=== PATIENT | female | born 1995 | race Caucasian/White ===

== ENCOUNTER 2019-01-12 23:17 | Inpatient (IN) | payer OTHER ==
[2019-01-13] MEDS ORDERED: SODIUM CHLORIDE 1,000 ML IV STA (00:24)
[2019-01-13] MEDS ORDERED: morphine SULFATE 4 MG/ML VIAL IVPUSH ONE (00:24)
[2019-01-13] MEDS ORDERED: ONDANSETRON 4 MG/2 ML VIAL IVPUSH ONE (00:24)
--- NOTE | 2019-01-13 00:30 | PDOC ---
History of Present Illness - General Stated Complaint: DIZZINESS Time Seen by Provider: 01/13/19 00:14 History Source: Patient Exam Limitations: Language Barrier (School Admissions #[id number]) - History of Present Illness Travel History: No Initial Comments: 01/13/19 00:26 HISTORY OF PRESENT ILLNESS: 24-year-old woman with history of gallstones presents emergency department for evaluation of right upper quadrant pain radiates to her right upper back for the past 2 days. Patient was seen and evaluated at [facility] and 01/11 was told she had gallstones at that time. Patient reports the pain is progressively gotten worse over the past 24 hours. Patient lives alone and is afraid she will in her bed without anybody knowing that she . Patient reports the pain to the right upper quadrants she rates at 10/10. She reports associated nausea but is unable to identify any aggravating or alleviating factors. No recent travel or sick contacts. PAST MEDICAL HISTORY: Gallstones SURGICAL HISTORY: Denies ALLERGIES: No known drug allergies REVIEW OF SYSTEMS General/Constitutional: Denies fever or chills. Denies weakness, weight change. HEENT: Denies change in vision. Denies ear pain or discharge. Denies sore throat. Cardiovascular: Denies chest pain or shortness of breath. Respiratory: Denies cough, wheezing, or hemoptysis. Gastrointestinal: see HPI Genitourinary: Denies dysuria, frequency, or change in urination. Musculoskeletal: Denies joint or muscle swelling or pain. Denies neck or back pain. Skin and breasts: Denies rash or easy bruising. Neurologic: Denies headache, vertigo, loss of consciousness, or loss of sensation. Psychiatric: Denies depression or anxiety. Endocrine: Denies increased thirst. Denies abnormal weight change. Hematologic/Lymphatic: Denies anemia, easy bleeding, or history of blood clots. Allergic/Immunologic: Denies hives or skin allergy. Denies latex allergy. PHYSICAL EXAM General Appearance: Well-appearing, appropriately dressed. No apparent distress , no intoxication. Respiratory/Chest: Lungs CTAB. No shortness of breath, chest tenderness, respiratory distress, accessory muscle use. No crackles, rales, rhonchi, stridor , wheezing, dullness Cardiovascular: RRR. S1, S2. No JVD, murmur, bradycardia, tachycardia. Vascular Pulses: Dorsalis-Pedis (R): 2+, Dorsalis-Pedis (L): 2+ Gastrointestinal/Abdominal: Normal bowel sounds. Abdomen soft, non-distended. RUQ tenderness with guarding. No rebound tenderness. (-)Orta's sign. No organomegaly, pulsatile mass, hernia, hepatomegaly, splenomegaly. Lymphatic: No adenopathy, tenderness. Musculoskeletal/Extremities: Normal inspection. FROM of all extremities, normal capillary refill. Pelvis Stable. No CVA tenderness. No tenderness to extremities, pedal edema, swelling, erythema or deformity. Integumentary: Appropriate color, dry, warm. No cyanosis, erythema, jaundice or rash Neurologic: floor winder II-XII intact. Fully oriented, alert. Appropriate mood/affect. Motor strength 5/5. No appreciable EOM palsy, facial droop or sensory deficit. Past History - Past Medical History Allergies/Adverse Reactions: Allergies Allergy/AdvReac Type Severity Reaction Status Date / Time No Known Allergies Allergy Verified 01/13/19 00:27 Home Medications: Ambulatory Orders NK [No Known Home Medication] 01/13/19 ED Treatment Course - LABORATORY CBC & Chemistry Diagram: 01/13/19 13:25 01/13/19 13:25 - RADIOLOGY Radiology Studies Ordered: Category Date Time Status GALLBLADDER US [US] Stat Ultrasound 01/13/19 00:25 Ordered Medical Decision Making - Medical Decision Making 01/13/19 00:28 A/P: 24-year-old woman with right upper quadrant pain for 2 days Lungs clear to auscultation bilaterally Right upper quadrant tenderness without rebound or Orta sign Guarding present Remainder of abdominal exam is benign. No CVA tenderness Differential diagnosis includes but is not limited to-gallstones, gallstone pancreatitis, cholecystitis, choledocholithiasis, hepatitis, GERD, pneumonia, ACS, anxiety about gallstone diagnosis Labs Urine Gallbladder ultrasound Morphine 4 mg IV Zofran 4 mg IV Normal saline 1 L IV bolus Reassess 01/13/19 02:46 CBC is unremarkable. Chemistries notable for T bili-2.6, AST 554, ALT 527, alkaline phosphatase 281. Lipase is 309. Urinalysis is suggestive of infection with 1+ leukoesterase and 16 wbc's. Ultrasound as read by imaging electronic train control technician the gallbladder is distended containing small stones and sludge without secondary signs of cholecystitis. CBC is not dilated and measures 6 mm in diameter but there is questionable CBD stone. I will contact hospitalist for admission for follow-up HIDA scan or MRCP and GI consult. Ceftriaxone 1 g IV for UTI 01/13/19 03:22 Case is been discussed with Dr. Vleasco who accepts patient for admission. *DC/Admit/Observation/Transfer Diagnosis at time of Disposition: Transaminitis UTI (urinary tract infection) Qualifiers: Urinary tract infection type: acute cystitis - Discharge Dispostion Condition at time of disposition: Fair Decision to Admit order: Yes - Referrals - Patient Instructions - Post Discharge Activity
[2019-01-13 00:51] LABS: BASO % 0.5 % (0-2.0); EOS % 1.2 % (0-4.5); LYMPH % 26.2 % (8-40); MCHC 31.6 g/dl (32.0-36.0); MEAN CELL VOLUME 79.1 fl (80-96); MEAN PLT VOLUME 7.7 fl (7.5-11.1); NEUT % 63.1 % (42.8-82.8); PLATELET COUNT 301 K/MM3 (134-434); RBC 4.81 M/mm3 (3.60-5.2); RDW 17.2 % (11.6-15.6); WHITE BLOOD COUNT 6.5 K/mm3 (4.0-10.0)
[2019-01-13 01:20] LABS: ALBUMIN 3.9 g/dl (3.4-5.0); ALK PHOS 281 U/L (45-117); ANION GAP 7 MMOL/L (8-16); BILIRUBIN,TOTAL 2.6 mg/dL (0.2-1); BLOOD UREA NITROGEN 9 mg/dL (7-18); CALCIUM 8.6 mg/dL (8.5-10.1); CHLORIDE 109 mmol/L (98-107); CO2 25 mmol/L (21-32); CREATININE 0.6 mg/dL (0.55-1.3); GLUCOSE,RANDOM 90 mg/dL (74-106); LIPASE 309 U/L (73-393); POTASSIUM 3.8 mmol/L (3.5-5.1); SGOT/AST 554 U/L (15-37); SGPT/ALT 527 U/L (13-61); SODIUM 141 mmol/L (136-145); TOT PROT 7.5 g/dl (6.4-8.2)
[2019-01-13] MEDS ORDERED: ONDANSETRON 4 MG/2 ML VIAL ONE (01:24)
[2019-01-13] MEDS ORDERED: morphine SULFATE 4 MG/ML VIAL ONE (01:24)
--- NOTE | 2019-01-13 01:26 | PDOC ---
*Physical Exam - Vital Signs Last Vital Signs Temp Pulse Resp BP Pulse Ox 98.0 F 79 18 108/67 98 01/13/19 00:17 01/13/19 00:17 01/13/19 00:17 01/13/19 00:17 01/13/19 00:17 ED Treatment Course - LABORATORY CBC & Chemistry Diagram: 01/13/19 13:25 01/13/19 13:25 - ADDITIONAL ORDERS Additional order review: Laboratory Results 01/13/19 00:45 Sodium 141 Potassium 3.8 Chloride 109 H Carbon Dioxide 25 Anion Gap 7 L BUN 9 Creatinine 0.6 Est GFR (CKD-EPI)AfAm 146.83 Est GFR (CKD-EPI)NonAf 126.68 Random Glucose 90 Calcium 8.6 Total Bilirubin 2.6 H AST 554 H ALT 527 H Alkaline Phosphatase 281 H Creatine Kinase 59 Troponin I < 0.02 Total Protein 7.5 Albumin 3.9 Lipase 309 01/13/19 00:45 RBC 4.81 MCV 79.1 L MCHC 31.6 L RDW 17.2 H MPV 7.7 Neutrophils % 63.1 Lymphocytes % 26.2 Monocytes % 9.0 Eosinophils % 1.2 Basophils % 0.5 - Medications Given in the ED: ED Medications Discontinued Medications Generic Name Dose Route Start Last Admin Trade Name Freq PRN Reason Stop Dose Admin Sodium Chloride 1,000 mls @ 1,000 mls/hr 01/13/19 00:24 01/13/19 01:15 Normal Saline - IV 01/13/19 01:23 1,000 mls/hr ASDIR STA Administration Morphine Sulfate 4 mg 01/13/19 00:24 01/13/19 01:15 Morphine Sulfate IVPUSH 01/13/19 00:25 4 mg ONCE ONE Administration Ondansetron HCl 4 mg 01/13/19 00:24 01/13/19 01:15 Zofran Injection IVPUSH 01/13/19 00:25 4 mg ONCE ONE Administration Medical Decision Making - Medical Decision Making 01/13/19 01:24 Ms Gaming is a 24 yo F who presents with a complaint of RUQ pain She is s/p evaluation at [facility] yesterday where she was told that she has gallstones Pt has worsening RUQ pain (+) nausea No aggravating or alleviating factors Will do: Labs US Re Assess need for surgical consultation Pt seen by Midlevel Provider under my direct supervision Ancillary studies reviewed I agree with plan as outlined by Midlevel Provider *DC/Admit/Observation/Transfer Diagnosis at time of Disposition: Transaminitis, UTI (urinary tract infection) - Discharge Dispostion Condition at time of disposition: Fair - Referrals - Patient Instructions - Post Discharge Activity
[2019-01-13 02:00] LABS: EPI CELLS 25.3 /HPF (0-5/HPF); HYALINE CASTS 4 /lpf (0-8); URINE APPEARANCE CLOUDY; URINE BACTERIA 1248.8 /hpf (NEGATIVE); URINE BILIRUBIN 2+ (NEGATIVE); URINE COLOR DK YELLOW; URINE GLUCOSE (UA) NEGATIVE (NEGATIVE); URINE KETONE NEGATIVE (NEGATIVE); URINE LEUK ESTERASE 1+ (NEGATIVE); URINE NITRITE NEGATIVE (NEGATIVE); URINE PROTEIN NEGATIVE (NEGATIVE); URINE RBC 5 /hpf (0-4); URINE WBC 16 /hpf (0-5)
[2019-01-13] MEDS ORDERED: CEFTRIAXONE 1,000 MG in DEXTROSE 5%-WATER - 50 ML IVPB ONE (02:44)
--- NOTE | 2019-01-13 02:54 | PN ---
Teaching Attending Note Name of Resident: Michael Ferreira ATTENDING PHYSICIAN STATEMENT I saw and evaluated the patient. I reviewed the resident's note and discussed the case with the resident. I agree with the resident's findings and plan as documented. SUBJECTIVE: Patient is a 24 year old woman with PMH of gallstones and 2 months ago who presents to the ER with right upper quadrant pain for 2 days. Pain radiates to her right upper back and she was evaluated at [facility] on 01/11/2019 and was told she had gallstones at that time. She was asked to follow up with GI. Has had bouts of vomiting with blood steaks. Patient reports the pain is progressively gotten worse over the past 24 hours. Patient lives alone and is afraid she will in her bed without anybody knowing that she . Patient reports the pain to the right upper quadrants she rates at 10/10. She reports associated nausea but is unable to identify any aggravating or alleviating factors. Says she drank a lot on her birthday on January 04, 2020. Denies fever, but has chills and dysuria, but no diarrhea, chestpain, SOB, dizziness or headache. Patient has tongue metal rings and rings in other body parts and may not be able to get an MRI. OBJECTIVE: Alert Vital Signs Period Temp Pulse Resp BP Sys/Cormier Pulse Ox Last 24 Hr 98.0 F 79 18 108/67 98 HEENT: No Jaundice, eye redness or discharge, PERRLA, EOMI. Normocephalic, atraumatic. External ears are normal and hearing is grossly intact. No nasal discharge. Neck: Supple, nontender. No palpable adenopathy or thyromegaly. No JVD Chest: Good effort. Clear to auscultation and percussion. Heart: Regular. No S3, rub or murmur Abdomen: Not distended, soft, RUQ tenderness and no HSM. No rebound or guarding. Normal bowel sounds. Ext: Peripheral pulses intact. No leg edema. Skin: Warm and dry. No petechiae, rash or ecchymosis. Neuro: Alert. Oriented x3. CN 2-12 grossly intact. Sensation grossly intact in all four extremities and DTR are symmetric. Psych: Appropriate mood and affect. Good insight. Abnormal Lab Results 01/13/19 01/13/19 01/13/19 00:45 00:45 01:34 MCV 79.1 L MCH 25.0 L MCHC 31.6 L RDW 17.2 H Chloride 109 H Anion Gap 7 L Total Bilirubin 2.6 H AST 554 H ALT 527 H Alkaline Phosphatase 281 H Urine Bilirubin 2+ H Ur Leukocyte Esterase 1+ H ASSESSMENT AND PLAN: 1. Cholelithiasis/Rule out Cholecystitis - Ultrasound shows gallstones and possible CBD stone. Will get blood cultures, HIDA scan to evaluate for cholecystitis and treat her with IV Rocephin for now. Also has features of UTI. Get hepatitis serology, fasting lipids, trend LFTs, keep her NPO and give IV LR , Protonix IV and IV morphine for severe pain. Consult GI and Surgery. 2. DVT prophylaxis - SCDs; Give Lovenox post procedure. 3. Advance directives - Full code
[2019-01-13] MEDS ORDERED: CEFTRIAXONE 1 GM/50 ML BAG ONE (03:52)
[2019-01-13] MEDS ORDERED: MORPHINE SULFATE 2 MG/ML VIAL IVPUSH PRN (04:41)
--- NOTE | 2019-01-13 05:04 | HP ---
CHIEF COMPLAINT: Nausea, Vomiting and Abdominal pain PCP: HISTORY OF PRESENT ILLNESS: Pt. is a 24 y.o. F w/o PMHx. presenting for nausea vomiting and abdominal pain for the last day. Pt. states that the pain is located in the RUQ, and epigastrium primarily but endorses LUQ and suprapubic tenderness. Pt. states that she normally drinks occasionally (2-3 drinks) at one time, however on her birthday she drank an unquantifiable amount. Pt. states that since yesterday she has vomited 10x including 2x in the ED, all with blood in her vomitus. Pt. states she feels dizzy and lightheaded currently. Pt. endorses polyuria and dysuria associated with chills. Pt. denies fever or hematuria at this time however is concerned that her urine has become darker n color over the last day. Pt. admits to not eating vegetables and eating lots of fatty foods. Pt. notes that she recently had a 2 months go without complications of a 40week gestational child. Pt. was seen and worked up at [facility] and found to have gall stones. ER course was notable for: (1)1L NS, Abd. US, Morphine 4 mg (2)UA, UCx.; Ceftriaxone, Ondansetron (3) Recent Travel: No PAST MEDICAL HISTORY: As above PAST SURGICAL HISTORY: (11/2018) Social History: Smoking: Denies Alcohol: Endorses 2-3 drinks occasionally Drugs: Denies Family History: Deneis Allergies No Known Allergies Allergy (Verified 01/13/19 00:27) HOME MEDICATIONS: REVIEW OF SYSTEMS As above PHYSICAL EXAMINATION Vital Signs - 24 hr 01/13/19 00:17 Temperature 98.0 F Pulse Rate 79 Respiratory 18 Rate Blood Pressure 108/67 O2 Sat by Pulse 98 Oximetry (%) GENERAL: Awake, alert, and fully oriented, in no acute distress. HEAD: Normal with no signs of trauma. EYES: Extraocular movements intact, sclera anicteric, conjunctiva clear. EARS, NOSE, THROAT: Ears normal, nares patent, oropharynx clear without exudates. Moist mucous membranes. NECK: Normal range of motion, supple without lymphadenopathy, JVD, or masses. LUNGS: Breath sounds equal, clear to auscultation bilaterally. No wheezes, and no crackles. No accessory muscle use. HEART: Regular rate and rhythm, normal S1 and S2 without murmur ABDOMEN: Soft, RUQ, Epigastric and LUQ tenderness, not distended, normoactive bowel sounds, no guarding, no rebound, no masses. No hepatomegaly or splenomegaly. MUSCULOSKELETAL: Normal range of motion at all joints. No bony deformities or tenderness. No CVA tenderness. UPPER EXTREMITIES: 2+ radial pulses, warm, well-perfused. No cyanosis. No clubbing. No peripheral edema. LOWER EXTREMITIES: 2+ dorsal pedal pulses, warm, well-perfused. No calf tenderness. No peripheral edema. NEUROLOGICAL: Normal speech. Normal gait. PSYCHIATRIC: Cooperative. Good eye contact. Appropriate mood and affect. SKIN: Warm, dry, normal turgor, no rashes or lesions noted, normal capillary refill. Laboratory Results - last 24 hr 01/13/19 01/13/19 01/13/19 00:45 00:45 00:45 WBC 6.5 RBC 4.81 Hgb 12.0 Hct 38.0 MCV 79.1 L MCH 25.0 L MCHC 31.6 L RDW 17.2 H Plt Count 301 MPV 7.7 Absolute Neuts (auto) 4.1 Neutrophils % 63.1 Lymphocytes % 26.2 Monocytes % 9.0 Eosinophils % 1.2 Basophils % 0.5 Nucleated RBC % 0 Sodium 141 Potassium 3.8 Chloride 109 H Carbon Dioxide 25 Anion Gap 7 L BUN 9 Creatinine 0.6 Est GFR (CKD-EPI)AfAm 146.83 Est GFR (CKD-EPI)NonAf 126.68 Random Glucose 90 Calcium 8.6 Total Bilirubin 2.6 H AST 554 H ALT 527 H Alkaline Phosphatase 281 H Creatine Kinase 59 Troponin I < 0.02 Total Protein 7.5 Albumin 3.9 Lipase 309 Urine Color Urine Appearance Urine pH Ur Specific [place] Urine Protein Urine Glucose (UA) Urine Ketones Urine Blood Urine Nitrite Urine Bilirubin Urine Urobilinogen Ur Leukocyte Esterase Urine WBC (Auto) Urine RBC (Auto) Urine Casts (Auto) U Epithel Cells (Auto) Urine Bacteria (Auto) Urine HCG, Qual Blood Type A POSITIVE Antibody Screen Negative 01/13/19 01/13/19 01:34 01:34 WBC RBC Hgb Hct MCV MCH MCHC RDW Plt Count MPV Absolute Neuts (auto) Neutrophils % Lymphocytes % Monocytes % Eosinophils % Basophils % Nucleated RBC % Sodium Potassium Chloride Carbon Dioxide Anion Gap BUN Creatinine Est GFR (CKD-EPI)AfAm Est GFR (CKD-EPI)NonAf Random Glucose Calcium Total Bilirubin AST ALT Alkaline Phosphatase Creatine Kinase Troponin I Total Protein Albumin Lipase Urine Color Dk yellow Urine Appearance Cloudy Urine pH 8.0 Ur Specific [place] 1.020 Urine Protein Negative Urine Glucose (UA) Negative Urine Ketones Negative Urine Blood Negative Urine Nitrite Negative Urine Bilirubin 2+ H Urine Urobilinogen 1.0 Ur Leukocyte Esterase 1+ H Urine WBC (Auto) 16 Urine RBC (Auto) 5 Urine Casts (Auto) 4 U Epithel Cells (Auto) 25.3 Urine Bacteria (Auto) 1248.8 Urine HCG, Qual Negative Blood Type Antibody Screen ASSESSMENT/PLAN: Pt. is a 24 y.o. F w/o PMHx. presenting for nausea vomiting and abdominal pain for the last day. Pt. states that the pain is located in the RUQ, and epigastrium primarily but endorses LUQ and suprapubic tenderness. #Biliary Colic 2/2 Cholestasis 2/2 and poor diet TBIli: 2.6; AST: 54; ALT: 527; ALP: 281 Abd US: Preliminary read shows multiple small gallstones in the gall bladder with sludge, questionable CBD stone however no CBD dilatation noted. GI Consult (Dr. Nevarez) appreciated f/u HIDA scan to evaluate obstruction the duct; may need MRCP for further evaluation however in the setting of a small CBD stone HIDA scan may be better to evaluate obstruction especially if near the ampulla. c/w Ceftriaxone f/u Lipid panel Lipase wnl Morphine 1mg Q6H for pain control #Upper GI Bleed multiple episodes of hemetemesis, though unwitnessed and unconfirmed by medical staff Hgb: stable at 12.0 Protonix 40mg IVP BID NPO IVF GI Consult appreciated #UTI c/w Ceftriaxone with empiric treatment for suspected UTI f/u UCx. f/u BCx. #FEN LR @ 200ml/hr for 2 bags monitor electrolytes an replete as needed NPO #DVT Ppx. SCDs TEDs Hold AC in setting of ongoing bleed Visit type - Emergency Visit Emergency Visit: Yes ED Registration Date: 01/13/19 Care time: The patient presented to the Emergency Department on the above date and was hospitalized for further evaluation of their emergent condition. - New Patient This patient is new to me today: Yes Date on this admission: 01/13/19 - Critical Care Critical Care patient: No
[2019-01-13] MEDS: LACTATED RINGERS SOLUTION 1,000 ML IV SCH ×2 (06:20→12:26)
[2019-01-13 08:03] VITALS: BMI 26.6
--- NOTE | 2019-01-13 10:08 | EKG ---
Test Reason : Blood Pressure : / mmHG Vent. Rate : 060 BPM Atrial Rate : 060 BPM P-R Int : 138 ms QRS Dur : 082 ms QT Int : 412 ms P-R-T Axes : 024 051 033 degrees QTc Int : 412 ms NORMAL SINUS RHYTHM NORMAL ECG NO PREVIOUS ECGS AVAILABLE Confirmed by JESSIKA WYNNE, JALIL ([id number]) on 01/13/2019 10:08:25 AM Referred By: Confirmed By:JALIL ROSEN MD
[2019-01-13] MEDS ORDERED: KETOROLAC TROMETHAMINE 30 MG/1 ML VIAL IVPUSH ONE (10:10)
[2019-01-13] MEDS: PANTOPRAZOLE SODIUM 40 MG VIAL IVPUSH SCH ×2 (10:18→21:39)
[2019-01-13 10:19] LABS: CHOLESTEROL 139 mg/dL (50-200); HDL CHOLESTEROL 56 mg/dL (40-60); MAGNESIUM 2.6 mg/dL (1.8-2.4); PHOSPHOROUS 2.6 mg/dL (2.5-4.9); TRIGLYCERIDES 80 mg/dL (0-150)
--- NOTE | 2019-01-13 10:49 | CON.GI ---
Consult Consult Specialty:: Gastroenterology - History of Present Illness Chief Complaint: Abdominal pain History of Present Illness: 24yo female h/o appendectomy presents with worsening RUQ pain over the past 2 days. Pt fijian speaking, phone motor vehicle parts interpreter used. Pt reports recurrent episodes of epigastric pain with radiation to RUQ/flank since November. States she has been seen in ED and treated conservatively with pain resolving within 5-6 hours, though not previously told she had gallstones. Pt now states pain started suddenly on Friday when at work, severe sharp pain in epigastrium radiating to RUQ, with associated nausea and vomiting. Describes streaks of bright blood yesterday after repeated emesis. Denies fever/chills. Denies clear association with meals or fatty foods. Reports dark urine, denies change in bowel pattern. Recently had uncomplicated C section (10/2018). Denies smoking, etoh, IVDA. ETOH consumption last week per records on pts birthday. No known family h/o gallbladder or liver disease, and no known GI malignancy. - History Source History Provided By: Patient Limitations to Obtaining History: No Limitations - Past Medical History ...LMP: 12/25/18 ...: No - Alcohol/Substance Use Hx Alcohol Use: Yes (occational) - Smoking History Smoking history: Never smoked Have you smoked in the past 12 months: No Home Medications - Allergies Allergies/Adverse Reactions: Allergies Allergy/AdvReac Type Severity Reaction Status Date / Time No Known Allergies Allergy Verified 01/13/19 00:27 - Home Medications Home Medications: Ambulatory Orders NK [No Known Home Medication] 01/13/19 Review of Systems - Review of Systems Constitutional: reports: No Symptoms Cardiovascular: reports: No Symptoms Respiratory: reports: No Symptoms Gastrointestinal: reports: Abdominal Pain Musculoskeletal: reports: No Symptoms Physical Exam-GI Vital Signs: Vital Signs Temperature 98.3 F 01/13/19 07:49 Pulse Rate 62 01/13/19 07:49 Respiratory Rate 18 01/13/19 07:49 Blood Pressure 120/76 01/13/19 07:49 O2 Sat by Pulse Oximetry (%) 98 01/13/19 08:13 Constitutional: Yes: Well Nourished, No Distress, Calm Cardiovascular: Yes: WNL, Regular Rate and Rhythm Respiratory: Yes: WNL, Regular, CTA Bilaterally Gastrointestinal Inspection: Yes: WNL ...Palpate: Yes: Other (Abd soft, tender in epigastrium and RUQ on palpation with slight guarding, non distended, no rebound, or rigidity) Labs: CBC, BMP 01/13/19 00:45 01/13/19 00:45 Imaging - Results Ultrasound: Report Reviewed, Image Reviewed Problem List - Problems (1) Abdominal pain Assessment/Plan: 24yo female h/o appendectomy, recent uncomplicated C section presents with worsening RUQ colicky pain with US revealing gallstones and possible CBD dilation with stone, and elevated LFTs. MRCP pending. Lipase normal. Concerning for choledocholithiasis vs passed stone though currently no clinical features to suggest cholangitis. -Keep NPO, continue IVF -Await MRCP to further evaluate biliary tree and assess for CBD stones -Repeat LFTs today (ordered) and monitor trend -Continue IV antibiotics (zosyn ordered) -PPI daily -Pending above, pt may require ERCP (Dr. Ward aware) -Surgery consult for cholecystectomy once clinically improved -If increased abdominal pain, rising LFTs, fever or hemodynamic stability that may suggest impending cholangitis please call GI for possible more urgent intervention. Code(s): R10.9 - UNSPECIFIED ABDOMINAL PAIN
[2019-01-13] MEDS ORDERED: PIPERACILLIN/TAZOB 3.375 GM 3.375 GM in DEXTROSE 5%-WATER - 50 ML IVPB SCH (11:30)
--- NOTE | 2019-01-13 11:40 | PN ---
Physical Exam: SUBJECTIVE: Patient seen and examined at bedside. Pt states she has persistent RUQ abdominal pain radiating to the back. Reports no urinary or bowel symptoms. OBJECTIVE: Vital Signs Temperature 98.3 F 01/13/19 07:49 Pulse Rate 62 01/13/19 07:49 Respiratory Rate 18 01/13/19 07:49 Blood Pressure 120/76 01/13/19 07:49 O2 Sat by Pulse Oximetry (%) 98 01/13/19 09:00 GENERAL: Kiswahili-speaking. Resting comfortably in bed. Alert and oriented. HEENT: AT/NC. Moist mucus membranes. NECK: Trachea midline, full range of motion, supple. LUNGS: CTA B/L. No wheezes, rhonchi, rales noted. Symmetric chest rise. HEART: RRR. Normal S1, S2. No murmurs noted. ABDOMEN: +TTP RUQ, +Orta sign. Well-healed horizontal scar in RLQ ( appendectomy) and suprapubic region (). No ecchymosis, redness, masses noted. EXTREMITIES: 2+ pulses, warm, well-perfused, no edema. NEUROLOGICAL: Responds to commands. CBC, BMP 01/13/19 00:45 01/13/19 00:45 Active Medications Lactated Ringer's (Lactated Ringers Solution) 1,000 mls @ 200 mls/hr IV ASDIR [facility] Stop: 01/14/19 09:44 Last Admin: 01/13/19 06:20 Dose: 200 mls/hr Piperacillin Sod/Tazobactam (Sod 3.375 gm/ Dextrose) 50 mls @ 100 mls/hr IVPB Q8H-IV SUSANA; Protocol Piperacillin Sod/Tazobactam (Sod 3.375 gm/ Dextrose) 100 mls @ 200 mls/hr IVPB Q8H [facility] Stop: 01/14/19 04:14 Morphine Sulfate (Morphine Sulfate) 1 mg IVPUSH Q6H PRN PRN Reason: PAIN LEVEL 7 - 10 Pantoprazole Sodium (Protonix Iv) 40 mg IVPUSH BID [facility] Last Admin: 01/13/19 10:18 Dose: 40 mg IMAGING: * Abd U/S: Slightly distended GB w/ biliary sludge and cholelithiasis. Slightly prominent CBD w/ suspected choledocholithiasis. MRCP follow up rec. * HIDA scan: Lack of biliary excretion, filling of the GB or biliary enteric transit of tracer after 4 hours of imaging suggestive of high-grade CBD obstruction. ASSESSMENT/PLAN: 24 Kiswahili-speaking female w/o pmhx presenting with nausea/vomiting and abdominal pain x2 days found to have choledocholithiasis vs. passing gallstone. #Choledocholithiasis vs. passing stone -HIDA scan noted above; high-grade CBD obstruction -GI made aware of HIDA results. Discussed with GI that since T Bili is starting to decrease, it is possible that pt may be passing stone. Likely ERCP tomorrow. Cont to monitor for increasing abd pain, increasing LFTs, fever, or HD instability concerning for cholangitis. -Surg consult for cholecystectomy once clinically improved -Switch from Ceftriaxone to Zosyn 3.375 Q8H IVPB (Day 2 of abx) -TBili improving 2.6 ---> 2.4, AST/ALT improving, lipase wnl -Morphine 1mg Q6H for pain control #Hematemesis; Stable, no bleeding episodes. -Hgb stable, 12 ---> 10.9; cont to monitor CBC -Protonix 40mg IVP BID -NPO, IVf #suspected UTI -previously given empiric Ceftriaxone, now switched to Zosyn -f/u UCx, BCx #FEN -LR @ 200ml/hr for 2 bags -monitor electrolytes an replete as needed -NPO #DVT Ppx -SCDs -TEDs -Hold AC Dispo -full code -cont to monitor on med-surg Visit type - Emergency Visit Emergency Visit: Yes ED Registration Date: 01/13/19 Care time: The patient presented to the Emergency Department on the above date and was hospitalized for further evaluation of their emergent condition. - New Patient This patient is new to me today: Yes Date on this admission: 01/13/19 - Critical Care Critical Care patient: No
[2019-01-13] MEDS ORDERED: PIPERACILLIN/TAZOBACTAM 3.375 GM VIAL IVPB ONE ×2 (12:35→19:43)
[2019-01-13] MEDS ORDERED: DEXTROSE 5%-WATER 100 ML IVPB ONE ×2 (12:35→19:43)
[2019-01-13] MEDS: PIPERACILLIN/TAZOB 3.375 GM 3.375 GM in DEXTROSE 5%-WATER 100 ML IVPB SCH ×2 (12:43→20:20)
[2019-01-13 13:50] LABS: HEMATOCRIT 34.4 % (32.4-45.2); HEMOGLOBIN 10.9 GM/dL (10.7-15.3); MCHC 31.6 g/dl (32.0-36.0); MEAN PLT VOLUME 7.9 fl (7.5-11.1); PLATELET COUNT 270 K/MM3 (134-434); RBC 4.35 M/mm3 (3.60-5.2); RDW 16.9 % (11.6-15.6); WHITE BLOOD COUNT 7.6 K/mm3 (4.0-10.0)
[2019-01-13 14:04] LABS: INR 0.97 (0.83-1.09); PROTHROMBIN TIME (PATIENT) 11.5 SEC (9.7-13.0)
[2019-01-13 14:19] LABS: ALBUMIN 3.4 g/dl (3.4-5.0); BILIRUBIN,TOTAL 2.4 mg/dL (0.2-1); CALCIUM 8.6 mg/dL (8.5-10.1); CREATININE 0.5 mg/dL (0.55-1.3); POTASSIUM 3.4 mmol/L (3.5-5.1); TOT PROT 6.5 g/dl (6.4-8.2)
--- NOTE | 2019-01-13 18:23 | PN ---
Teaching Attending Note Name of Resident: Niyah Antony ATTENDING PHYSICIAN STATEMENT I saw and evaluated the patient. I reviewed the resident's note and discussed the case with the resident. I agree with the resident's findings and plan as documented. SUBJECTIVE: Ongoing epigastric pain, bloody vomiting resolved. No fever/chills. No diarrhea/melena/hematochezia. No chest pain/palpitations/lightheadedness OBJECTIVE: Afebrile, Hemodynamically Stable Last Vital Signs Temp Pulse Resp BP Pulse Ox 98.5 F 90 18 113/60 98 01/13/19 15:42 01/13/19 15:42 01/13/19 15:42 01/13/19 15:42 01/13/19 09:00 HEENT - Atraumatic, Normocephalic Heart - S1, S2, RRR Lungs - clear to auscultation Abdomen - Epigastric/RUQ tenderness, soft, bowel Sounds normal. Extremities - no edema, no calf tenderness. Laboratory Results - last 24 hr 01/13/19 01/13/19 01/13/19 00:45 00:45 00:45 WBC 6.5 RBC 4.81 Hgb 12.0 Hct 38.0 MCV 79.1 L MCH 25.0 L MCHC 31.6 L RDW 17.2 H Plt Count 301 MPV 7.7 Absolute Neuts (auto) 4.1 Neutrophils % 63.1 Lymphocytes % 26.2 Monocytes % 9.0 Eosinophils % 1.2 Basophils % 0.5 Nucleated RBC % 0 PT with INR INR Sodium 141 Potassium 3.8 Chloride 109 H Carbon Dioxide 25 Anion Gap 7 L BUN 9 Creatinine 0.6 Est GFR (CKD-EPI)AfAm 146.83 Est GFR (CKD-EPI)NonAf 126.68 Random Glucose 90 Calcium 8.6 Phosphorus 2.6 Magnesium 2.6 H Total Bilirubin 2.6 H AST 554 H ALT 527 H Alkaline Phosphatase 281 H Creatine Kinase 59 Troponin I < 0.02 Total Protein 7.5 Albumin 3.9 Triglycerides 80 Cholesterol 139 Total LDL Cholesterol 73 HDL Cholesterol 56 Lipase 309 Urine Color Urine Appearance Urine pH Ur Specific [place] Urine Protein Urine Glucose (UA) Urine Ketones Urine Blood Urine Nitrite Urine Bilirubin Urine Urobilinogen Ur Leukocyte Esterase Urine WBC (Auto) Urine RBC (Auto) Urine Casts (Auto) U Epithel Cells (Auto) Urine Bacteria (Auto) Urine HCG, Qual Blood Type A POSITIVE Antibody Screen Negative 01/13/19 01/13/19 01/13/19 01:34 01:34 05:26 WBC RBC Hgb Hct MCV MCH MCHC RDW Plt Count MPV Absolute Neuts (auto) Neutrophils % Lymphocytes % Monocytes % Eosinophils % Basophils % Nucleated RBC % PT with INR INR Sodium Potassium Chloride Carbon Dioxide Anion Gap BUN Creatinine Est GFR (CKD-EPI)AfAm Est GFR (CKD-EPI)NonAf Random Glucose Calcium Phosphorus Magnesium Total Bilirubin AST ALT Alkaline Phosphatase Creatine Kinase Troponin I Total Protein Albumin Triglycerides Cholesterol Total LDL Cholesterol HDL Cholesterol Lipase Urine Color Dk yellow Urine Appearance Cloudy Urine pH 8.0 Ur Specific [place] 1.020 Urine Protein Negative Urine Glucose (UA) Negative Urine Ketones Negative Urine Blood Negative Urine Nitrite Negative Urine Bilirubin 2+ H Urine Urobilinogen 1.0 Ur Leukocyte Esterase 1+ H Urine WBC (Auto) 16 Urine RBC (Auto) 5 Urine Casts (Auto) 4 U Epithel Cells (Auto) 25.3 Urine Bacteria (Auto) 1248.8 Urine HCG, Qual Negative Blood Type A POSITIVE Antibody Screen 01/13/19 01/13/19 01/13/19 13:25 13:25 13:25 WBC 7.6 RBC 4.35 Hgb 10.9 Hct 34.4 MCV 79.0 L MCH 25.0 L MCHC 31.6 L RDW 16.9 H Plt Count 270 MPV 7.9 Absolute Neuts (auto) Neutrophils % Lymphocytes % Monocytes % Eosinophils % Basophils % Nucleated RBC % PT with INR 11.50 INR 0.97 Sodium 139 Potassium 3.4 L Chloride 108 H Carbon Dioxide 23 Anion Gap 7 L BUN 7 Creatinine 0.5 L Est GFR (CKD-EPI)AfAm 155.90 Est GFR (CKD-EPI)NonAf 134.52 Random Glucose 86 Calcium 8.6 Phosphorus Magnesium Total Bilirubin 2.4 H AST 272 H ALT 394 H Alkaline Phosphatase 257 H Creatine Kinase Troponin I Total Protein 6.5 Albumin 3.4 Triglycerides Cholesterol Total LDL Cholesterol HDL Cholesterol Lipase Urine Color Urine Appearance Urine pH Ur Specific [place] Urine Protein Urine Glucose (UA) Urine Ketones Urine Blood Urine Nitrite Urine Bilirubin Urine Urobilinogen Ur Leukocyte Esterase Urine WBC (Auto) Urine RBC (Auto) Urine Casts (Auto) U Epithel Cells (Auto) Urine Bacteria (Auto) Urine HCG, Qual Blood Type Antibody Screen Current Medications Generic Name Dose Route Start Last Admin Trade Name Freq PRN Reason Stop Dose Admin Lactated Ringer's 1,000 mls @ 200 mls/hr 01/13/19 04:45 01/13/19 12:26 Lactated Ringers Solution IV 01/14/19 09:44 200 mls/hr ASDIR SUSANA Administration Piperacillin Sod/Tazobactam 50 mls @ 100 mls/hr 01/13/19 11:30 Sod 3.375 gm/ Dextrose IVPB Q8H-IV SUSANA Protocol Piperacillin Sod/Tazobactam 100 mls @ 200 mls/hr 01/13/19 11:45 01/13/19 12: 43 Sod 3.375 gm/ Dextrose IVPB 01/14/19 04:14 200 mls/hr Q8H SUSANA Administration Lactated Ringer's 1,000 ml in 1,000 mls @ 100 mls/hr 01/13/19 16:30 Lactated Ringers Solution IV ASDIR SUSANA Morphine Sulfate 1 mg 01/13/19 04:41 Morphine Sulfate IVPUSH Q6H PRN PAIN LEVEL 7 - 10 Pantoprazole Sodium 40 mg 01/13/19 10:00 01/13/19 10:18 Protonix Iv IVPUSH 40 mg BID SUSANA Administration ASSESSMENT AND PLAN: 24 year old female with history of recent , presents with epigastric pain with associated nausea and bloody vomitus (bright red as per patient) - no further episodes. 1. Biliary Obstruction secondary to Choledocholithiasis Afebrile, Hemodynamically Stable - no evidence of ascending cholangitis On IV Zosyn empirically TBIli: 2.6, AST: 554, ALT 527 on presentation - now down to TBil 2.4, AST 272, ALT 394 Abd US shows multiple small gallstones in a distended gall bladder with sludge, questionable CBD stone, prominent CBD HIDA shows findings suggestive of high grade CBD obstruction GI consulted and evaluated - for likely ERCP tomorrow. As per GI - if increased abdominal pain, rising LFTs, fever or hemodynamic stability that may suggest impending cholangitis please call GI for possible more urgent intervention. Analgesia with IV Morphine 2. Hematemesis ? sec to MV tear GI evaluated ?EGD/ERCP Continue Protonix H/H Stable NPO/IV Fluids Further management as per GI 3. Possible UTI UA + Ceftriaxone switched to IV Zosyn Urine Cx pending. DVT Px - SCDs. Heparin held sec to reported Hematemesis.
[2019-01-13] MEDS: LACTATED RINGERS SOLUTION 1,000 ML/1,000 ML INFUS.BAG IV SCH ×2 (20:18)
[2019-01-14] MEDS ORDERED: DEXTROSE 5%-WATER 100 ML IVPB ONE (02:47)
[2019-01-14] MEDS ORDERED: PIPERACILLIN/TAZOBACTAM 3.375 GM VIAL IVPB ONE (02:47)
[2019-01-14] MEDS: PIPERACILLIN/TAZOB 3.375 GM 3.375 GM in DEXTROSE 5%-WATER 100 ML IVPB SCH (04:23)
--- NOTE | 2019-01-14 06:45 | PN ---
Physical Exam: SUBJECTIVE: Patient seen and examined at bedside. No acute events overnight. States abdominal pain is now 3/10. Slept well last night. Denies chest pain, sob , n/v. OBJECTIVE: Vital Signs Temperature 98.0 F 01/13/19 23:00 Pulse Rate 76 01/13/19 23:00 Respiratory Rate 18 01/13/19 23:00 Blood Pressure 115/65 01/13/19 23:00 O2 Sat by Pulse Oximetry (%) 98 01/13/19 22:00 GENERAL: Occitan-speaking. Resting comfortably in bed. Alert and oriented. HEENT: AT/NC. Moist mucus membranes. NECK: Trachea midline, full range of motion, supple. LUNGS: CTA B/L. No wheezes, rhonchi, rales noted. Symmetric chest rise. HEART: RRR. Normal S1, S2. No murmurs noted. ABDOMEN: +TTP RUQ, +Orta sign. Well-healed horizontal scar in RLQ ( appendectomy) and suprapubic region (). No ecchymosis, redness, masses noted. EXTREMITIES: 2+ pulses, warm, well-perfused, no edema. NEUROLOGICAL: Responds to commands. CBC, BMP 01/13/19 13:25 01/13/19 13:25 Active Medications Lactated Ringer's (Lactated Ringers Solution) 1,000 mls @ 200 mls/hr IV ASDIR SUSANA Stop: 01/14/19 09:44 Last Admin: 01/13/19 12:26 Dose: 200 mls/hr Piperacillin Sod/Tazobactam (Sod 3.375 gm/ Dextrose) 50 mls @ 100 mls/hr IVPB Q8H-IV SUSANA; Protocol Lactated Ringer's (Lactated Ringers Solution) 1,000 ml in 1,000 mls @ 100 mls/ hr IV ASDIR SUSANA Last Admin: 01/13/19 20:18 Dose: 100 mls/hr Morphine Sulfate (Morphine Sulfate) 1 mg IVPUSH Q6H PRN PRN Reason: PAIN LEVEL 7 - 10 Last Admin: 01/13/19 21:39 Dose: 1 mg Pantoprazole Sodium (Protonix Iv) 40 mg IVPUSH BID SUSANA Last Admin: 01/13/19 21:39 Dose: 40 mg IMAGING: * Abd U/S: Slightly distended GB w/ biliary sludge and cholelithiasis. Slightly prominent CBD w/ suspected choledocholithiasis. MRCP follow up rec. * HIDA scan: Lack of biliary excretion, filling of the GB or biliary enteric transit of tracer after 4 hours of imaging suggestive of high-grade CBD obstruction. * MRCP: pending ASSESSMENT/PLAN: 24 Occitan-speaking female w/o pmhx presenting with nausea/vomiting and abdominal pain x2 days found to have choledocholithiasis vs. passing gallstone. #Choledocholithiasis vs. passing stone -Stable. Afebrile and hemodynamically stable; no sign of cholangitis -HIDA scan noted above; high-grade CBD obstruction -Per GI, will possibly need ERCP; awaiting MRCP results -Surg consult for cholecystectomy once clinically improved -Cont Zosyn 3.375 Q8H IVPB (Day 3 of abx) -TBili improving 2.6 ---> 2.4 ---> 1.1, AST/ALT improving, lipase wnl -Morphine 1mg Q6H for pain control #Hematemesis; Stable, no bleeding episodes. -Hgb stable, 12 ---> 10.9 ---> 10.7; cont to monitor CBC -Protonix 40mg IVP BID -NPO, IVf #suspected UTI -Cont Zosyn -BCx neg x24h -UCx +LFGNB #FEN -LR @ 100ml/hr -monitor electrolytes and replete as needed -NPO #DVT Ppx -SCDs -TEDs -Hold AC Dispo -full code -cont to monitor on med-surg Visit type - Emergency Visit Emergency Visit: Yes ED Registration Date: 01/13/19 Care time: The patient presented to the Emergency Department on the above date and was hospitalized for further evaluation of their emergent condition. - New Patient This patient is new to me today: No - Critical Care Critical Care patient: No
[2019-01-14 08:40] LABS: BASO % 0.3 % (0-2.0); EOS % 0.5 % (0-4.5); HEMATOCRIT 33.5 % (32.4-45.2); HEMOGLOBIN 10.7 GM/dL (10.7-15.3); LYMPH % 22.9 % (8-40); MCH 25.2 pg (25.7-33.7); MEAN CELL VOLUME 78.6 fl (80-96); MEAN PLT VOLUME 7.7 fl (7.5-11.1); MONO % 6.1 % (3.8-10.2); NEUT % 70.2 % (42.8-82.8); PLATELET COUNT 268 K/MM3 (134-434); RBC 4.26 M/mm3 (3.60-5.2); RDW 16.6 % (11.6-15.6); WHITE BLOOD COUNT 9.3 K/mm3 (4.0-10.0)
[2019-01-14 09:11] LABS: ALBUMIN 3.3 g/dl (3.4-5.0); BILIRUBIN,TOTAL 1.1 mg/dL (0.2-1); CALCIUM 8.5 mg/dL (8.5-10.1); CREATININE 0.4 mg/dL (0.55-1.3); POTASSIUM 3.5 mmol/L (3.5-5.1); TOT PROT 6.3 g/dl (6.4-8.2)
[2019-01-14] MEDS: PANTOPRAZOLE SODIUM 40 MG VIAL IVPUSH SCH (10:26)
[2019-01-14] MEDS: LACTATED RINGERS SOLUTION 1,000 ML/1,000 ML INFUS.BAG IV SCH (10:28)
[2019-01-14] MEDS: LACTATED RINGERS SOLUTION 1,000 ML IV SCH (10:32)
--- NOTE | 2019-01-14 12:50 | PN ---
Teaching Attending Note Name of Resident: Thuy Gee ATTENDING PHYSICIAN STATEMENT I saw and evaluated the patient. I reviewed the resident's note and discussed the case with the resident. I agree with the resident's findings and plan as documented. SUBJECTIVE: Ongoing epigastric pain, bloody vomiting resolved. No fever/chills. No diarrhea/melena/hematochezia. No chest pain/palpitations/lightheadedness OBJECTIVE: Afebrile, Hemodynamically Stable Last Vital Signs Temp Pulse Resp BP Pulse Ox 99.1 F 78 20 100/55 L 98 01/14/19 07:59 01/14/19 07:59 01/14/19 07:59 01/14/19 07:59 01/13/19 22:00 Heart - S1, S2, RRR Lungs - clear to auscultation Abdomen - Epigastric/RUQ tenderness, soft, bowel Sounds normal. Extremities - no edema, no calf tenderness. Laboratory Results - last 24 hr 01/13/19 01/13/19 01/13/19 13:25 13:25 13:25 WBC 7.6 RBC 4.35 Hgb 10.9 Hct 34.4 MCV 79.0 L MCH 25.0 L MCHC 31.6 L RDW 16.9 H Plt Count 270 MPV 7.9 Absolute Neuts (auto) Neutrophils % Lymphocytes % Monocytes % Eosinophils % Basophils % Nucleated RBC % PT with INR 11.50 INR 0.97 Sodium 139 Potassium 3.4 L Chloride 108 H Carbon Dioxide 23 Anion Gap 7 L BUN 7 Creatinine 0.5 L Est GFR (CKD-EPI)AfAm 155.90 Est GFR (CKD-EPI)NonAf 134.52 Random Glucose 86 Calcium 8.6 Total Bilirubin 2.4 H AST 272 H ALT 394 H Alkaline Phosphatase 257 H Total Protein 6.5 Albumin 3.4 01/14/19 01/14/19 07:40 07:40 WBC 9.3 RBC 4.26 Hgb 10.7 Hct 33.5 MCV 78.6 L MCH 25.2 L MCHC 32.0 RDW 16.6 H Plt Count 268 MPV 7.7 Absolute Neuts (auto) 6.5 Neutrophils % 70.2 Lymphocytes % 22.9 Monocytes % 6.1 Eosinophils % 0.5 Basophils % 0.3 Nucleated RBC % 0 PT with INR INR Sodium 137 Potassium 3.5 Chloride 107 Carbon Dioxide 21 Anion Gap 9 BUN 11 Creatinine 0.4 L Est GFR (CKD-EPI)AfAm 167.78 Est GFR (CKD-EPI)NonAf 144.76 Random Glucose 54 L Calcium 8.5 Total Bilirubin 1.1 H AST 102 H ALT 276 H Alkaline Phosphatase 222 H Total Protein 6.3 L Albumin 3.3 L Current Medications Generic Name Dose Route Start Last Admin Trade Name Freq PRN Reason Stop Dose Admin Piperacillin Sod/Tazobactam 50 mls @ 100 mls/hr 01/13/19 11:30 Sod 3.375 gm/ Dextrose IVPB Q8H-IV SUSANA Protocol Lactated Ringer's 1,000 ml in 1,000 mls @ 100 mls/hr 01/13/19 16:30 01/14/19 10:28 Lactated Ringers Solution IV 100 mls/hr ASDIR SUSANA Administration Pantoprazole Sodium 40 mg 01/13/19 10:00 01/14/19 10:26 Protonix Iv IVPUSH 40 mg BID SUSANA Administration ASSESSMENT AND PLAN: 24 year old female with history of recent , presents with epigastric pain with associated nausea and bloody vomitus (bright red as per patient) - no further episodes. 1. Biliary Obstruction secondary to Choledocholithiasis Afebrile, Hemodynamically Stable - no evidence of ascending cholangitis On IV Zosyn empirically TBIli: 2.6, AST: 554, ALT 527 on presentation - now down to TBil 1.1, AST 102, ALT 207 Abd US shows multiple small gallstones in a distended gall bladder with sludge, questionable CBD stone, prominent CBD HIDA shows findings suggestive of high grade CBD obstruction GI consulted and evaluated - for likely ERCP As per GI - if increased abdominal pain, rising LFTs, fever or hemodynamic stability that may suggest impending cholangitis please call GI for more urgent intervention. 2. Hematemesis ? sec to MV tear GI evaluated Continue Protonix H/H Stable NPO/IV Fluids Further management as per GI 3. UTI UCx + for LFNB Ceftriaxone switched to IV Zosyn - Day 3 Await final ID and sensitivity DVT Px - SCDs. Heparin held sec to reported Hematemesis.
--- NOTE | 2019-01-14 15:15 | PN.GI ---
GI Progress Note Subjective: Google translate used in aid of interpretation as patient speaks limited gambian. Mother was present at bedside. Patient still with RUQ pain and epigastric pain. Just returned from MRCP - Objective Vital Signs: Vital Signs Temperature 99.1 F 01/14/19 07:59 Pulse Rate 78 01/14/19 07:59 Respiratory Rate 20 01/14/19 07:59 Blood Pressure 100/55 L 01/14/19 07:59 O2 Sat by Pulse Oximetry (%) 98 01/13/19 22:00 Constitutional: Calm Eyes: No: Sclera Icterus Cardiovascular: Yes: Regular Rate and Rhythm Respiratory: Yes: CTA Bilaterally ...Auscultate: Yes: Normoactive Bowel Sounds ...Palpate: Yes: Tenderness (TTP RUQ and epigastrium) ...Percussion: No: Tympanitic Edema: No (No LE edema) Neurological: Yes: Alert Labs: CBC, BMP 01/14/19 07:40 01/14/19 07:40 INR, PTT INR 0.97 (0.83-1.09) 01/13/19 13:25 Hepatic Panel Total Bilirubin 1.1 mg/dL (0.2-1) H 01/14/19 07:40 AST 102 U/L (15-37) H 01/14/19 07:40 ALT 276 U/L (13-61) H 01/14/19 07:40 Alkaline Phosphatase 222 U/L (45-117) H 01/14/19 07:40 Albumin 3.3 g/dl (3.4-5.0) L 01/14/19 07:40 Problem List - Problems (1) Abnormal liver function tests Assessment/Plan: Associated with pain and dilated CBD. ? of CBD stone on US. MRCP performed and result pending Patient and her mother aware of the potential for ERCP tomorrow for bile duct stone extraction AM Labs, NPO except meds, IV Abx for now. IV hydration Indocin suppositiry ordered professional fee coder for Endo Type and screen ordered for AM Code(s): R94.5 - ABNORMAL RESULTS OF LIVER FUNCTION STUDIES
[2019-01-14] MEDS ORDERED: INDOMETHACIN 50 MG RECTAL SUPPOSITORY PR SCH (15:16)
[2019-01-14] MEDS: DEXTROSE 5%-NORMAL SALINE 1,000 ML IV SCH (18:35)
--- NOTE | 2019-01-14 19:48 | CONSULT ---
Consult Consult Specialty:: Surgery Reason for Consultation:: Abdominal pain. - History of Present Illness Chief Complaint: 24 year old woman is admitted with ? right upper quadrant abdominal pain. ?Cholecytitis. History of Present Illness: Patient is admitted for right upper quadrant abdominal pain. Was seen at [facility] and sent home. - History Source History Provided By: Patient Limitations to Obtaining History: Language Barrier - Past Medical History ...LMP: 12/25/18 ...: No - Alcohol/Substance Use Hx Alcohol Use: Yes (occational) - Smoking History Smoking history: Never smoked Have you smoked in the past 12 months: No Home Medications - Allergies Allergies/Adverse Reactions: Allergies Allergy/AdvReac Type Severity Reaction Status Date / Time No Known Allergies Allergy Verified 01/13/19 00:27 - Home Medications Home Medications: Ambulatory Orders NK [No Known Home Medication] 01/13/19 Physical Exam Vital Signs: Vital Signs Temperature 98.4 F 01/14/19 15:00 Pulse Rate 94 H 01/14/19 15:00 Respiratory Rate 20 01/14/19 15:00 Blood Pressure 113/64 01/14/19 15:00 O2 Sat by Pulse Oximetry (%) 98 01/14/19 09:00 Labs: CBC, BMP 01/14/19 07:40 01/14/19 07:40 Imaging - Results Ultrasound: Report Reviewed (Ultrasound : Sludge in gallbladder with probable small calculii. Mri normal gallbladder without calculus, normal CBD m without obstructioin and calculus,) MRI: Report Reviewed, Image Reviewed Problem List - Problems (1) Abdominal pain Code(s): R10.9 - UNSPECIFIED ABDOMINAL PAIN (2) Abnormal liver function tests Code(s): R94.5 - ABNORMAL RESULTS OF LIVER FUNCTION STUDIES (3) Transaminitis Code(s): R74.0 - NONSPEC ELEV OF LEVELS OF TRANSAMNS & LACTIC ACID DEHYDRGNSE Assessment/Plan Abdominal pain. Normal MRI of biliary ductal system with no excretion of radioisotope from the liver. Markedly elevated ast and ALT compared to alaklinr phosphatase. ? Is this secondary to hepatic disease , rather than obstructive bilary process , i.e. stones. Has sludge in the gallbladder.
[2019-01-15] MEDS: DEXTROSE 5%-NORMAL SALINE 1,000 ML IV SCH ×2 (03:57→15:30)
[2019-01-15 07:38] LABS: BASO % 0.4 % (0-2.0); EOS % 1.1 % (0-4.5); HEMATOCRIT 34.3 % (32.4-45.2); HEMOGLOBIN 11.2 GM/dL (10.7-15.3); LYMPH % 31.3 % (8-40); MCH 25.4 pg (25.7-33.7); MCHC 32.7 g/dl (32.0-36.0); MEAN CELL VOLUME 77.9 fl (80-96); MEAN PLT VOLUME 8.1 fl (7.5-11.1); MONO % 8.6 % (3.8-10.2); NEUT % 58.6 % (42.8-82.8); RBC 4.41 M/mm3 (3.60-5.2); RDW 16.9 % (11.6-15.6); WHITE BLOOD COUNT 8.7 K/mm3 (4.0-10.0)
[2019-01-15 08:46] LABS: ALBUMIN 3.3 g/dl (3.4-5.0); BILIRUBIN,TOTAL 0.5 mg/dL (0.2-1); CALCIUM 8.6 mg/dL (8.5-10.1); CREATININE 0.4 mg/dL (0.55-1.3); POTASSIUM 3.8 mmol/L (3.5-5.1); TOT PROT 6.4 g/dl (6.4-8.2)
--- NOTE | 2019-01-15 11:17 | PN.GI ---
GI Progress Note Subjective: Data Processing Control Clerk utilized: Dr. Simeon deferring surgery at this time Had discussion with Ms. Gaming. She has had multiple similar episodes of post prandial RUQ pain lasting 4-5 hours from October and 2 episodes during her LFTs improved Currently pain free, however, concern is that she has had multiple episodes of clinically what sounds like biliary colic, seems to have passed a stone on this admission and has had prior ER visits for the same issue. I called Dr. Berry, discussed the case and asked for 2nd opinion regarding cholecystectomy during this admission. Discussed with Ms. Gaming and she is in agreement with the plan. - Objective Vital Signs: Vital Signs Temperature 99.0 F 01/15/19 05:00 Pulse Rate 72 01/15/19 05:00 Respiratory Rate 16 01/15/19 05:00 Blood Pressure 108/60 01/15/19 05:00 O2 Sat by Pulse Oximetry (%) 98 01/14/19 21:00 Labs: CBC, BMP 01/15/19 05:23 01/15/19 05:23 INR, PTT INR 0.97 (0.83-1.09) 01/13/19 13:25 Problem List - Problems (1) Abnormal liver function tests Code(s): R94.5 - ABNORMAL RESULTS OF LIVER FUNCTION STUDIES
[2019-01-15 12:21] LABS: PLATELET COUNT 295 K/MM3 (134-434)
--- NOTE | 2019-01-15 15:13 | PN ---
Teaching Attending Note Name of Resident: Thuy Gee ATTENDING PHYSICIAN STATEMENT I saw and evaluated the patient. I reviewed the resident's note and discussed the case with the resident. I agree with the resident's findings and plan as documented. SUBJECTIVE: Improvement in epigastric/RUQ pain. No further vomiting. No fever/ chills. No diarrhea/melena/hematochezia. No chest pain/palpitations/ lightheadedness OBJECTIVE: Afebrile, Hemodynamically Stable Last Vital Signs Temp Pulse Resp BP Pulse Ox 99.0 F 72 16 108/60 98 01/15/19 05:00 01/15/19 05:00 01/15/19 05:00 01/15/19 05:00 01/14/19 21:00 Heart - S1, S2, RRR Lungs - clear to auscultation Abdomen - Some ongoing Epigastric/RUQ tenderness, soft, bowel Sounds normal. Extremities - no edema, no calf tenderness. Laboratory Results - last 24 hr 01/15/19 01/15/19 01/15/19 05:23 05:23 05:23 WBC 8.7 RBC 4.41 Hgb 11.2 Hct 34.3 MCV 77.9 L MCH 25.4 L MCHC 32.7 RDW 16.9 H Plt Count 295 MPV 8.1 Absolute Neuts (auto) 5.1 Neutrophils % 58.6 Lymphocytes % 31.3 D Monocytes % 8.6 Eosinophils % 1.1 D Basophils % 0.4 Nucleated RBC % 0 Sodium 140 Potassium 3.8 Chloride 108 H Carbon Dioxide 25 Anion Gap 8 BUN 6 L Creatinine 0.4 L Est GFR (CKD-EPI)AfAm 167.78 Est GFR (CKD-EPI)NonAf 144.76 Random Glucose 95 Calcium 8.6 Total Bilirubin 0.5 AST 34 ALT 198 H Alkaline Phosphatase 198 H Total Protein 6.4 Albumin 3.3 L Blood Type A POSITIVE Antibody Screen Negative Current Medications Generic Name Dose Route Start Last Admin Trade Name Freq PRN Reason Stop Dose Admin Piperacillin Sod/Tazobactam 50 mls @ 100 mls/hr 01/13/19 11:30 Sod 3.375 gm/ Dextrose IVPB Q8H-IV SUSANA Protocol Dextrose/Sodium Chloride 1,000 mls @ 100 mls/hr 01/14/19 15:30 01/15/19 03:57 D5-Ns - IV 100 mls/hr ASDIR SUSANA Administration Indomethacin 50 mg 01/14/19 15:16 Indocin Suppository - [facility] 01/15/19 15:15 EQUIPMENT COORDINATOR [facility] ASSESSMENT AND PLAN: 24 year old female with history of recent , presents with epigastric pain with associated nausea and bloody vomitus (bright red as per patient) - no further episodes. 1. Biliary Obstruction secondary to likely passed stone Afebrile, Hemodynamically Stable - no evidence of ascending cholangitis On IV Zosyn empirically TBIli: 2.6, AST: 554, ALT 527 on presentation - now down to TBil 1.1, AST 198, ALT 34 Abd US shows multiple small gallstones in a distended gall bladder with sludge, questionable CBD stone, prominent CBD HIDA shows findings suggestive of high grade CBD obstruction MRCP showed no cholelithiasis or choledocholithiasis with non-specific GB wall thickening. Surgery recommends no need for urgent Cholecystectomy 2nd opinion solicited by GI- awaiting Surgical 2nd opinion re: need for in- patient cholecystectomy. 2. Hematemesis ? sec to MV tear GI evaluated Continue Protonix H/H Stable Further management as per GI 3. UTI UCx - EColi Ceftriaxone switched to IV Zosyn - Day 4 of Abx therapy 4. R Renal Cyst - incidental finding - follow up as out-patient. DVT Px - SCDs. Heparin held sec to reported Hematemesis. If no need for urgent surgical intervention, patient can be discharged on Ceftin and Flagyl for 6 additional days for total 10 day course.
--- NOTE | 2019-01-15 18:30 | CONSULT ---
Consult Consult Specialty:: General Surgery Reason for Consultation:: cholelithiasis - History of Present Illness Chief Complaint: abdominal pain History of Present Illness: 24 yo female PMH gallstones presents emergency department for evaluation of right upper quadrant pain radiates to her right upper back for the past 2 days. Patient was seen and evaluated at [facility] and 01/11 was told she had gallstones at that time. Patient reports the pain is progressively gotten worse over the past 24 hours. Patient lives alone and is afraid she will in her bed without anybody knowing that she . Patient reports the pain to the right upper quadrants she rates at 10/10. She reports associated nausea but is unable to identify any aggravating or alleviating factors. we were asked to as second opinion with regards to need for cholecystecomy. - History Source History Provided By: Patient, Medical Record Limitations to Obtaining History: No Limitations - Past Medical History ...LMP: 12/25/18 ...: No - Alcohol/Substance Use Hx Alcohol Use: Yes (occational) - Smoking History Smoking history: Never smoked Have you smoked in the past 12 months: No Home Medications - Allergies Allergies/Adverse Reactions: Allergies Allergy/AdvReac Type Severity Reaction Status Date / Time No Known Allergies Allergy Verified 01/13/19 00:27 - Home Medications Home Medications: Ambulatory Orders Cefuroxime Axetil [Ceftin -] 500 mg PO Q12H 6 Days #12 tablet 01/15/19 metroNIDAZOLE [Flagyl -] 500 mg PO Q12H 6 Days #12 tablet 01/15/19 Review of Systems - Review of Systems Constitutional: denies: Chills, Fever, Unintentional Wgt. Loss Eyes: denies: Blind Spots, Blurred Vision HENT: denies: Difficult Swallowing, Throat Pain Cardiovascular: denies: Chest Pain, Palpitations Respiratory: denies: Cough, Exercise Intolerance, Hemoptysis, SOB, Wheezing Gastrointestinal: reports: Abdominal Pain. denies: Diarrhea, Dysphagia Genitourinary: denies: Discharge, Dysuria, Flank Pain Breasts: denies: Breast Implants, Skin Changes Musculoskeletal: denies: Crepitus, Joint Swelling, Muscle Pain Neurological: denies: Confusion, Dizziness Endocrine: denies: Unexplained Weight Gain, Unexplained Weight Loss Hematology/Lymphatic: denies: Easily Bruised, Excessive Bleeding Psychiatric: denies: Anxiety, Depression Physical Exam Vital Signs: Vital Signs Temperature 98.5 F 01/15/19 09:00 Pulse Rate 82 01/15/19 09:00 Respiratory Rate 18 01/15/19 09:00 Blood Pressure 112/65 01/15/19 09:00 O2 Sat by Pulse Oximetry (%) 98 01/15/19 09:00 Constitutional: Yes: Well Nourished, No Distress, Calm Eyes: Yes: Conjunctiva Clear, EOM Intact HENT: Yes: Atraumatic, Normocephalic Neck: Yes: Supple, Trachea Midline Cardiovascular: Yes: Regular Rate and Rhythm, S1, S2 Respiratory: Yes: Regular, CTA Bilaterally Gastrointestinal: Yes: Normal Bowel Sounds, Soft, Hepatomegaly. No: Ascites, Distention, Palpable Mass, Tenderness, Tenderness, Epigastrium, Tenderness, Rebound ...Rectal Exam: Yes: Sphincter Tone Normal. No: Hemorrhoids/External, Inflammation Renal/: No: CVA Tenderness - Left, CVA Tenderness - Right Breast(s): No: Discharge from Nipple, Nipple Inversion Musculoskeletal: No: Joint Stiffness, Muscle Pain Extremities: No: Cool, Cyanosis Edema: No Peripheral Pulses WNL: Yes Integumentary: No: Incision, Jaundice, Rash Neurological: Yes: Alert, Oriented Psychiatric: Yes: Alert, Oriented Labs: CBC, BMP 01/15/19 05:23 01/15/19 05:23 Imaging - Results Ultrasound: Report Reviewed, Image Reviewed MRI: Report Reviewed, Image Reviewed Problem List - Problems (1) Abnormal liver function tests Assessment/Plan: 24 yo with abdominal pain, after review of the available imaging and examining the patient I would agree no need for acute general surgical intervention at this time. She was caution to refrain from alcohol consumption and consume a low fat diet. Additional testing would be useful to determine whether she has biliary dyskinesia. Low fat diet Alcohol cessation f/u in surgery clinic if symptoms return Thank you for the opportunity to participate in the care of this patient. Code(s): R94.5 - ABNORMAL RESULTS OF LIVER FUNCTION STUDIES (2) Abdominal pain Code(s): R10.9 - UNSPECIFIED ABDOMINAL PAIN (3) Transaminitis Code(s): R74.0 - NONSPEC ELEV OF LEVELS OF TRANSAMNS & LACTIC ACID DEHYDRGNSE (4) UTI (urinary tract infection) Code(s): N39.0 - URINARY TRACT INFECTION, SITE NOT SPECIFIED Qualifiers: Urinary tract infection type: acute cystitis
[2019-01-15 18:54] VITALS: BP 105/63; PULSE 91; TEMP 98.8
--- NOTE | 2019-01-15 20:38 | PN ---
Physical Exam: SUBJECTIVE: Patient seen and examined at bedside. No acute events overnight. OBJECTIVE: Vital Signs Temperature 98.8 F 01/15/19 17:00 Pulse Rate 91 H 01/15/19 17:00 Respiratory Rate 16 01/15/19 17:00 Blood Pressure 105/63 01/15/19 17:00 O2 Sat by Pulse Oximetry (%) 98 01/15/19 09:00 GENERAL: Guinean-speaking. Resting comfortably in bed. Alert and oriented. HEENT: AT/NC. Moist mucus membranes. NECK: Trachea midline, full range of motion, supple. LUNGS: CTA B/L. No wheezes, rhonchi, rales noted. Symmetric chest rise. HEART: RRR. Normal S1, S2. No murmurs noted. ABDOMEN: +mild TTP RUQ, Well-healed horizontal scar in RLQ (appendectomy) and suprapubic region (). No ecchymosis, redness, masses noted. EXTREMITIES: 2+ pulses, warm, well-perfused, no edema. NEUROLOGICAL: Responds to commands. CBC, BMP 01/15/19 05:23 01/15/19 05:23 Active Medications Piperacillin Sod/Tazobactam (Sod 3.375 gm/ Dextrose) 50 mls @ 100 mls/hr IVPB Q8H-IV SUSANA; Protocol Dextrose/Sodium Chloride (D5-Ns -) 1,000 mls @ 100 mls/hr IV ASDIR SUSANA Last Admin: 01/15/19 15:30 Dose: 100 mls/hr IMAGING: * Abd U/S: Slightly distended GB w/ biliary sludge and cholelithiasis. Slightly prominent CBD w/ suspected choledocholithiasis. MRCP follow up rec. * HIDA scan: Lack of biliary excretion, filling of the GB or biliary enteric transit of tracer after 4 hours of imaging suggestive of high-grade CBD obstruction. * MRCP: pending ASSESSMENT/PLAN: 24 [place]inean-speaking female w/o pmhx presenting with nausea/vomiting and abdominal pain x2 days found to have choledocholithiasis vs. passing gallstone. #Biliary Obstruction 2/2 passed stone; Resolved. -Abd xray, HIDA scan, MRCP noted above. -Stable. Afebrile and hemodynamically stable; no sign of ascending cholangitis. Stone likely passed as LFTs improving, pt tolerating diet. -Surg consulted, Dr Simeon and Dr. Berry (for second opinion as per GI); await secondary surgical consult. -ERCP no longer needed at this time. -Cont Zosyn 3.375 Q8H IVPB (Day 3 of abx) -TBili improved -Morphine 1mg Q6H for pain control #Hematemesis; Stable, no bleeding episodes. -Hgb stable #UTI -Cont Zosyn -BCx neg x48h -UCx +E. coli #FEN -LR @ 100ml/hr -monitor electrolytes and replete as needed -NPO #DVT Ppx -SCDs -TEDs -Hold AC Dispo -full code -cont to monitor on med-surg Visit type - Emergency Visit Emergency Visit: Yes ED Registration Date: 01/13/19 Care time: The patient presented to the Emergency Department on the above date and was hospitalized for further evaluation of their emergent condition. - New Patient This patient is new to me today: No - Critical Care Critical Care patient: No
--- NOTE | 2019-01-16 07:37 | DS ---
Physical Exam: SUBJECTIVE: Patient seen and examined. No acute events overnight. OBJECTIVE: Vital Signs Period Temp Pulse Resp BP Sys/Cormier Pulse Ox Last 24 Hr 98.5 F-98.8 F 82-91 16-18 105-112/63-65 98 PHYSICAL EXAM GENERAL: Bhutanese-speaking. Resting comfortably in bed. Alert and oriented. HEENT: AT/NC. Moist mucus membranes. NECK: Trachea midline, full range of motion, supple. LUNGS: CTA B/L. No wheezes, rhonchi, rales noted. Symmetric chest rise. HEART: RRR. Normal S1, S2. No murmurs noted. ABDOMEN: +mild TTP RUQ, Well-healed horizontal scar in RLQ (appendectomy) and suprapubic region (). No ecchymosis, redness, masses noted. EXTREMITIES: 2+ pulses, warm, well-perfused, no edema. NEUROLOGICAL: Responds to commands. LABS Laboratory Results - last 24 hr 01/15/19 01/15/19 01/15/19 05:23 05:23 05:23 WBC 8.7 RBC 4.41 Hgb 11.2 Hct 34.3 MCV 77.9 L MCH 25.4 L MCHC 32.7 RDW 16.9 H Plt Count 295 MPV 8.1 Absolute Neuts (auto) 5.1 Neutrophils % 58.6 Lymphocytes % 31.3 D Monocytes % 8.6 Eosinophils % 1.1 D Basophils % 0.4 Nucleated RBC % 0 Sodium 140 Potassium 3.8 Chloride 108 H Carbon Dioxide 25 Anion Gap 8 BUN 6 L Creatinine 0.4 L Est GFR (CKD-EPI)AfAm 167.78 Est GFR (CKD-EPI)NonAf 144.76 Random Glucose 95 Calcium 8.6 Total Bilirubin 0.5 AST 34 ALT 198 H Alkaline Phosphatase 198 H Total Protein 6.4 Albumin 3.3 L Hep C Ab Diagnostic Blood Type A POSITIVE Antibody Screen Negative 01/15/19 10:30 WBC RBC Hgb Hct MCV MCH MCHC RDW Plt Count MPV Absolute Neuts (auto) Neutrophils % Lymphocytes % Monocytes % Eosinophils % Basophils % Nucleated RBC % Sodium Potassium Chloride Carbon Dioxide Anion Gap BUN Creatinine Est GFR (CKD-EPI)AfAm Est GFR (CKD-EPI)NonAf Random Glucose Calcium Total Bilirubin AST ALT Alkaline Phosphatase Total Protein Albumin Hep C Ab Diagnostic <0.1 Blood Type Antibody Screen HOSPITAL COURSE: Date of Admission:01/13/19 IMAGING: * Abd U/S: Slightly distended GB w/ biliary sludge and cholelithiasis. Slightly prominent CBD w/ suspected choledocholithiasis. MRCP follow up rec. * HIDA scan: Lack of biliary excretion, filling of the GB or biliary enteric transit of tracer after 4 hours of imaging suggestive of high-grade CBD obstruction. * MRCP: No cholelithiasis nor choledocholithiasis nor pancreaticobiliary ductal dilatation. 24 Bhutanese-speaking female w/o pmhx presenting with nausea/vomiting and abdominal pain x2 days found to have biliary obstruction 2/2 passed gallstone. Lab work showed elevated LFTs and T Bili. Abd U/S revealed slightly distended GB w/ biliary sludge and cholelithiasis. HIDA scan showed findings suggestive of high-grade CBD obstruction. As a result, pt was evaluated by GI with recommendation to consult surgery for possible cholecystectomy and made NPO with IVfs. Upon surgical eval, no emergent surgical intervention was needed this admission. Pt was monitored in the hospital for lab work and worsening clinical symptoms. Throughout her stay, pt's LFTs, Tbili, and symptoms improved. An MRCP was done that showed no evidence of cholelithiasis, choledocholithiasis or pancreaticobiliary ductal dilatation. Per GI, no ERCP was needed this admission. Pt was discharged home and advised to follow up with her primary care physician, surgeon, and GI doctor as an outpatient. Date of Discharge: 01/16/19 Minutes to complete discharge: 35 Discharge Summary Reason For Visit: URINARY TRACT INFECTION,ELEVATED Condition: Improved - Instructions Diet, Activity, Other Instructions: You were seen in the hospital for complaints of abdominal pain. you were found to have a possible infection in your gallbladder and a urinary tract infection. MEDICATIONS We are sending you home with two antibiotics to help fight your infection. One medication is called Ceftin. Take 500mg of this medication twice daily for another 6 days. The second antibiotic is called metronidazole. Please take 500mg of this medication twice daily for another 6 days. FOLLOW UP Please follow up with your primary care physician within 1 week. Please follow up with your GI doctor, Dr. Gautam, within 1 week. Please follow up with your surgeon, Dr. Simeon, within 1 week. If you experience worsening and persistent abdominal pain, fever/chills, nausea/ vomiting, chest pain, shortness of breath, or other associated symptoms, please proceed to your nearest emergency room immediately. Referrals: [facility] [place] [Provider Group] Cristo Gautam DO [Staff Physician] - Sumeet Simeon MD [Staff Physician] - Disposition: HOME - Home Medications Comprehensive Discharge Medication List: Ambulatory Orders Cefuroxime Axetil [Ceftin -] 500 mg PO Q12H 6 Days #12 tablet 01/15/19 metroNIDAZOLE [Flagyl -] 500 mg PO Q12H 6 Days #12 tablet 01/15/19 This patient is new to me today: No Emergency Visit: Yes ED Registration Date: 01/13/19 Care time: The patient presented to the Emergency Department on the above date and was hospitalized for further evaluation of their emergent condition. Critical Care patient: No - Discharge Referral Referred to [facility] Yes Physician Referral: Rei Gautam DO (GI)
[2019-01-16 10:13] LABS: HBSAG SCREEN Negative (Negative); HEP A AB, IGM Negative (Negative); HEP B CORE AB, TOT Negative (Negative)
== END 2019-01-15 20:54 | disposition home or self-care (01) | DRG 463 ==
LOC: JER 23:17 → JERBED 01-13 03:23 → J6S 01-13 06:47
PROVIDERS: ADMIT Internal Medicine
DX: N39.0 Urinary tract infection, site not specified (principal); K92.0 Hematemesis; K80.01 Calculus of gallbladder with acute cholecystitis with obstruction; N28.1 Cyst of kidney, acquired; B96.29 Other Escherichia coli [E. coli] as the cause of diseases classified elsewhere
CPT/HCPCS: 36415; 74181-TC; 76705-TC; 78226-TC; 80048; 80053; 80061; 81003; 82550; 83690; 83721; 83735; 84100; 84484; 84703; 85025; 85027; 85610; 86704; 86706; 86708; 86803; 86850; 86900; 86901; 87040; 87086; 87186; 87340; 93005; 93010; 99284-25; A9537; J7030